=== PATIENT | male | born 1990 | race Asian ===

== ENCOUNTER 2016-06-19 21:32 | Emergency (ER) | payer SELFPAY ==
[~2016-06-19] VITALS: Ht 177.8 cm; Wt 74.0 kg
[~2016-06-19 21:32] MED LIST: VIST25CA PO
[2016-06-19 21:46] VITALS: BP 115/68; PULSE 90; RESP 20; TEMP 98.5
== END 2016-06-19 23:35 | disposition left against medical advice (07) ==
LOC: PHED 21:32
DX: R11.2 Nausea with vomiting, unspecified (principal)
CPT/HCPCS: 99281

== ENCOUNTER 2016-12-03 23:00 | Emergency (ER) | payer OTHER ==
[~2016-12-03] VITALS: Ht 175.3 cm; Wt 68.0 kg
[2016-12-03 23:04] VITALS: BP 129/75; PULSE 72; RESP 18; TEMP 98.8; O2SAT 100
[2016-12-03] MEDS ORDERED: PENI500T PO (23:12)
[2016-12-03] MEDS ORDERED: HYDR-3533 PO (23:12)
--- NOTE | 2016-12-03 23:13 | PD ---
HPI Chief Complaint: Oral / Dental Pain or Problem Time Seen by Provider: 23:10 Travel History International Travel<30 days: No Contact w/Intl Traveler<30days: No History of Present Illness HPI 26-year-old male arrives about 2 days of right upper dentalgia. He's trying to dental paste to help with pain and it does not help. There is a constant throbbing quality with radiation to the right face. No fever. He plans to see a dentist seen having recently obtained insurance. PFSH Past Medical History Anxiety: Yes Diminished Hearing: No Social History Alcohol Use: Yes (OCCASIONALLY) Tobacco Use: No (1 PPD) Substance Use: No Allergies-Medications (Allergen,Severity, Reaction): Coded Allergies: No Known Allergies (Unverified , 12/03/16) Reported Meds & Prescriptions Reported Meds & Active Scripts Active Lortab (Hydrocodone-Acetaminophen) 5-325 Mg Tab 1-2 Tab PO Q6H PRN Penicillin V Potassium 500 Mg Tab 500 Mg PO Q6H 7 Days Vistaril (Hydroxyzine Pamoate) 25 Mg Cap 25 Mg PO Q6HR PRN FOR ITCHING Review of Systems General / Constitutional: No: Fever HENT: Positive: Dental Difficulties Physical Exam Narrative GENERAL: 26-year-old male well-nourished well-developed no acute distress SKIN: Focused skin assessment warm/dry. HEAD: Atraumatic. Normocephalic. EYES: Pupils equal and round. No scleral icterus. No injection or drainage. ENT: No nasal bleeding or discharge. Mucous membranes pink and moist. Minimal tenderness to palpation of the second premolar on the right upper side. NECK: Trachea midline. No JVD. No significant lymphadenopathy. Data Data Last Documented VS Vital Signs Date Time Temp Pulse Resp B/P Pulse Ox O2 Delivery O2 Flow Rate FiO2 12/03/16 23:04 98.8 72 18 129/75 100 Vital signs reviewed Orders Penicillin V Potassium (Veetids) (12/03/16 23:15) Acetamin-Hydrocod 325-5 Mg ([place] 5-325 (12/03/16 23:15) MDM Medical Decision Making Medical Screen Exam Complete: Yes Emergency Medical Condition: Yes Medical Record Reviewed: Yes Differential Diagnosis Dental abscess, dental carry, dental fracture Narrative Course Pen VK. Lortab. Follow-up with dentist. Patient agreeable with plan. Diagnosis Primary Impression: Dentalgia Referrals: Dentist 2 days Primary Care Physician 2 days Additional Instructions: You have a choice when it comes to health care, and we are glad that you chose [facility]. Hopefully, we have met your expectations on today's visit. You are welcome to return to [facility] at any time, as we are committed to meeting the health care needs of our community. Med/Other Pt SpecificInfo: Prescription(s) given Scripts Hydrocodone-Acetaminophen (Lortab)5-325 Mg Tab1-2 Tab PO Q6H PRN (PAIN SCALE 6 TO 10) #20 TAB Ref 0 Prov:Juan Antonio Palomino MD 12/03/16 Penicillin V Potassium 500 Mg [id number] Mg PO Q6H 7 Days Ref 0 Prov:Juan Antonio Palomino MD 12/03/16 Disposition: 01 DISCHARGE HOME Condition: Stable Juan Antonio Palomino MD Dec 03, 2016 23:12
[2016-12-03] MEDS ORDERED: PENICILLIN V POTASSIUM 500 MG TAB PO ONE (23:15)
[2016-12-03] MEDS ORDERED: ACETAMINOPHEN/HYDROcodone 325 MG/5 MG TAB PO ONE (23:15)
[2016-12-03 23:44] VITALS: BP 127/69; PULSE 74; RESP 18; O2SAT 98
== END 2016-12-04 00:18 | disposition home or self-care (01) ==
LOC: PHED 23:00
DX: K08.89 Other specified disorders of teeth and supporting structures (principal)
CPT/HCPCS: 99284